=== PATIENT | male | born 1940 | race Two or more races ===

== ENCOUNTER 2024-02-28 11:51 | Inpatient (IN) | payer MEDICARE, MEDICAID, SELFPAY ==
[2024-02-28] VITALS (8 sets, daily range): BP systolic 144–169; BP diastolic 68–99; PULSE 61–84; RESP 15–18; TEMP 36.3–37.2; O2SAT 97–100; BMI 24.8
--- NOTE | 2024-02-28 11:57 | XR_ITS ---
Examination: CT brain head without contrast. 2-D sagittal coronal reconstructions Date and time of exam:February 28, 2024 1158 hrs. Indications: Right-sided facial droop this morning, stroke alert, onset focal neurologic deficit CTDI: vol (mGy):49.3 DLP: (mGycm):948 Technique: Multiple CT axial sections of the brain have been obtained, 5 mm slice thickness. Contrast has not been administered. 2-D sagittal, coronal reconstructions have been obtained Low dose protocols were performed. One or more of the following dose reduction techniques were used; automated exposure control, adjustment of the mA and/or KV according to patient size, use of iterative reconstruction technique. Findings: No significant ventricular enlargement. 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 No mass effect or midline shift Basal cisterns are not remarkable. Fourth ventricle is midline. Cranial vault intact. Impression: Negative for acute hemorrhage, mass effect or midline shift As clinically warranted, consider brain MRI follow-up stroke protocol
--- NOTE | 2024-02-28 11:57 | XR_ITS ---
Examination: CTA carotids with intravenous contrast CTA brain, head with intravenous contrast. 2-D sagittal, coronal reconstructions. 3-D reconstructions. Exam date and time: February 28, 2024 12:15 PM Indications: Stroke alert, onset focal neurologic deficit right-sided facial droop this morning CTDI: vol (mGy) 44.9 DLP: (mGycm) 453 Technique: Multiple CTA axial brain, head carotid images post intravenous contrast injection 70 cc, Isovue-370. 2-D sagittal, coronal reconstructions. 3-D reconstructions, 3-D post processing including vascular maximum intensity projection images. Low dose protocols were performed. One or more of the following dose reduction techniques were used; automated exposure control, adjustment of the mA and/or KV according to patient size, use of iterative reconstruction technique. Findings: No significant common carotid carotid bifurcation or internal carotid artery stenoses Minimally dominant right vertebral artery with no critical stenoses 50% stenosis M1 segment right middle cerebral artery No thrombus or large vessel occlusions Impression: No significant neck arterial stenoses 50% stenosis M1 segment right middle cerebral artery No cerebral large vessel occlusions or thrombus
--- NOTE | 2024-02-28 11:59 | EKG_ITS ---
[facility] Test Date: 2024-02-28 Pat Name: MYNOR SANABRIA Department: Room: - Gender: Male [employer] Secretary: : 1941-01-05 Requested By: Mio Esteban Order Number: [id number] Reading MD: Mio Esteban Measurements Intervals Coy Rate: 79 P: 41 NH: 193 QRS: 37 QRSD: 86 T: -7 QT: 386 QTc: 444 Interpretive Statements SINUS RHYTHM No previous ECG available for comparison /store/S0/[id number]/ecg/[id number].pdf
[2024-02-28 12:17] LABS: Basophils % (Auto) 0 % (0-2.5); Eosinophils % (Auto) 1 % (0-10); Hematocrit 35.1 % (41.0-53.0); Hemoglobin 11.8 g/dL (13.5-16.0); Immature Granulocytes % (Auto) 0 % (0-0); Immature Granulocytes Auto 0.01 Thou/mm3 (0.00-0.00); Lymphocytes % (Auto) 15 % (10-50); Mean Corpuscular HGB Conc 33.6 g/dl (31.0-37.0); Mean Corpuscular Hemoglobin 29.9 pg (25.0-35.0); Mean Corpuscular Volume 89 fL (80-100); Monocytes # (Auto) 0.4 Thou/mm3 (0.0-0.8); Monocytes % (Auto) 6 % (0-12); Neutrophils # (Auto) 5.1 Thou/mm3 (1.8-7.7); Neutrophils % (Auto) 77 % (37-80); Nucleated Red Blood Cell % 0 /100 WBC (0); Platelet Count 198 Thou/mm3 (140-440); RDW Standard Deviation 40.4 fL (35.1-43.9); Red Blood Count 3.95 Miln/mm3 (4.50-5.90); White Blood Count 6.6 Thou/mm3 (3.8-10.6)
--- NOTE | 2024-02-28 12:17 | PRELIM_ITS ---
CT scan of the head without intravenous contrast (axial sections with sagittal and coronal reformats) February 28, 2024 at 1158 hoursClinical history: Right facial droop.Comparison: No prior study is av ailable for comparison at the time of interpretation. Findings:There is no evidence of intracranial h emorrhage, mass effect or midline shift. No definitive wedge-shaped acute infarcts are detected. Ther e are periventricular and deep white matter hypodensities, compatible with chronic small vessel ische yamila. There is moderate volume loss. Chronic infarct is seen in the right high frontal lobe. Multiple chronic lacunar infarcts are seen in the left basal ganglia. There is atheromatous calcification of t he intracranial and vertebral arteries. The calvarium is unremarkable. Mild mucosal thickening in karan ateral ethmoid sinuses. The mastoid air cells are clear. Impression:No evidence of intracranial hemor rhage, mass effect or midline shift. If there are persistent clinical symptoms or additional clinical concerns, consider MRI. Chronic small vessel ischemia, chronic infarcts and volume loss as described . Discussion Details: Results verbally communicated to : Dr. Esteban at 12:08 PM 02/28/2024 Report Elec tronically Signed By: Shahriar Ocampo 02/28/2024 12:16:30 PM [EST]
[2024-02-28 12:27] LABS: INR 1.1 (0.9-1.3); Partial Thromboplastin Time 25.1 Seconds (22.0-36.0); Prothrombin Time 11.5 Seconds (9.0-12.2)
[2024-02-28 12:28] LABS: Alanine Aminotransferase 29 U/L (10-49); Albumin, Serum 4.3 gm/dL (3.4-4.8); Albumin/Globulin Ratio 1.9 (1.2-2.2); Alkaline Phosphatase 82 U/L (46-116); Anion Gap 7 (7-16); Aspartate Amino Transferase 17 U/L (0-34); BUN/Creatinine Ratio 13 Ratio (12-20); Bilirubin,Total 0.7 mg/dL (0.3-1.2); Blood Urea Nitrogen 14 mg/dL (9-23); Calcium 9.4 mg/dL (8.3-10.6); Calcium (Corrected) 9.4 mg/dL (8.5-10.1); Carbon Dioxide 25.7 mMol/L (20.0-31.0); Chloride 104 mMol/L (98-107); Creatinine (Component) 1.1 mg/dL (0.6-1.3); Globulin 2.3 gm/dL (2.3-3.5); Glucose 324 mg/dL (74-106); Magnesium 1.7 mg/dL (1.6-2.6); Osmolality,Calculated 287 (275-295); Sodium 137 mMol/L (136-145); Total Protein 6.6 gm/dL (5.7-8.2); Troponin I < 0.002 ng/mL (0.0-0.045); eGFR > 60 See Note
--- NOTE | 2024-02-28 12:45 | ESCONSULT_ITS ---
Tele Neuro Consultation Consultation Date 02/28/24 Most Recent Vital Signs Last Vital Signs Pulse 84 02/28/24 12:34 Resp 16 02/28/24 12:34 Pulse Ox 100 02/28/24 12:34 Laboratory-Coagulation Panel PT 11.5 Seconds (9.0-12.2) 02/28/24 11:59 INR 1.1 (0.9-1.3) 02/28/24 11:59 APTT 25.1 Seconds (22.0-36.0) 02/28/24 11:59 Consultation Narrative [facility] Tele[facility]urology Consult Services Patient Name:???Artie Roman Date of :???01/05/1941 Identification Number:??? 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 No dysphagia on bedside swallow evaluation. Tpa not offered given low nihss, pt did not find symptoms disabling. Recommend admission for stroke workup. ? ?Recs: ? - cont home asa 81mg, load with plavix 600 mg load now ?- Following day - DAPT for total of 21 days: asa 81 and plavix 75 mg, followed by asa 81 mg monotherapy indefinitely, unless indication for anticoagulation is found ?- MRI brain wo ?- Telemetry ?- Permissive HTN, BP goal <220/110 ?- TTE if embolic appearing stroke ?- monitor worker 14-30 days upon discharge ? Our recommendations are outlined below. Recommendations: ? Stroke/Telemetry Floor ? Neuro Checks ? Bedside Swallow Eval ? DVT Prophylaxis ? IV Fluids, Normal Saline ? Head of Bed 30 Degrees ? Euglycemia and Avoid Hyperthermia (PRN Acetaminophen) Sign Out: ? Discussed with Emergency Department Provider Advanced Imaging:CTA Head and Neck Completed. LVO:No Patient in not a candidate for ADAMA Metrics: Last Known Well: 02/28/2024 11:12:00 Dispatch Time: 02/28/2024 11:55:54 Arrival Time: 02/28/2024 11:51:00 Initial Response Time: 02/28/2024 11:57:32Symptoms: coming from home R facial droop slurred speech. Initial patient interaction: 02/28/2024 12:18:45 NIHSS Assessment Completed: 02/28/2024 12:28:00Patient is not a candidate for Thrombolytic. Thrombolytic Medical Decision: 02/28/2024 12:28:00Patient was not deemed candidate for Thrombolytic because of following reasons: Stroke severity too mild (non-disabling) . I personally Reviewed the CT Head and it Showed no acute changes. 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 Primary Provider Notified of Diagnostic Impression and Management Plan on: 02/28/2024 12:35:52 History of Present Illness:Patient is a 83 year old Male. Patient was brought by EMS for symptoms of coming from home R facial droop slurred speech. 83 year old man presents via ems for R facial droop with slurred speech. Pt was talking with his when his speech changed. Pt had a stroke one year ago without residual deficits. Per who presented later at bedside pt had difficulty speaking and was given tpa for stroke in March. No residual deficits. ? Past Medical History: ?Hypertension ?Diabetes Mellitus ?Stroke Medications: No Anticoagulant use? Antiplatelet use:?Yes?asa 81 mg Reviewed EMR for current medications Allergies:? Reviewed Social History: Alcohol Use: No Family History: There is no family history of premature cerebrovascular disease pertinent to this consultation ROS : 14 Points Review of Systems was performed and was negative except mentioned in HPI. Past Surgical History: There Is No Surgical History Contributory To Today?s Visit ? Examination: BP(197/100),?Pulse(96),?Blood Glucose(282) 1A: Level of Consciousness - Alert; keenly responsive?+ 0 1B: Ask Month and Age - Both Questions Right?+ 0 1C: Blink Eyes & Squeeze Hands - Performs Both Tasks?+ 0 2: Test Horizontal Extraocular Movements - Normal?+ 0 3: Test Visual Neri - No Visual Loss?+ 0 4: Test Facial Palsy (Use Grimace if Obtunded) - Minor paralysis (flat nasolabial fold, smile asymmetry)?+ 1 5A: Test Left Arm Motor Drift - No Drift for 10 Seconds?+ 0 5B: Test Right Arm Motor Drift - No Drift for 10 Seconds?+ 0 6A: Test Left Leg Motor Drift - No Drift for 5 Seconds?+ 0 6B: Test Right Leg Motor Drift - No Drift for 5 Seconds?+ 0 7: Test Limb Ataxia (FNF/Heel-Pierre) - No Ataxia?+ 0 8: Test Sensation - Normal; No sensory loss?+ 0 9: Test Language/Aphasia - Normal; No aphasia?+ 0 10: Test Dysarthria - Mild-Moderate Dysarthria: Slurring but can be understood?+ 1 11: Test Extinction/Inattention - No abnormality?+ 0 NIHSS Score:?2 NIHSS Free Text :?R facial droop, no dysphagia, Pre-Morbid Modified [place] Scale:0 Points = No symptoms at all Spoke with :?Dr. Esteban This consult was conducted in real time using interactive audio and video technology. Patient was informed of the technology being used for this visit and agreed to proceed. Patient located in hospital and provider located at home/office setting. Patient is being evaluated for possible acute neurologic impairment and high probability of imminent or life-threatening deterioration. I spent total of 48 minutes providing care to this patient, including time for face to face visit via telemedicine, review of medical records, imaging studies and discussion of findings with providers, the patient and/or family. Dr Shay Wharton [facility] For Inpatient follow-up with [facility] physician please call [facility] at . As we are not an outpatient service for any post hospital discharge needs please contact the hospital for assistance. If you have any questions for the [facility] physicians or need to reconsult for clinical or diagnostic changes please contact us via [facility] at .
--- NOTE | 2024-02-28 13:50 | PC.NURSE ---
Patient biba from home for right facial droop and slurred speech. He was home with his having breakfast at 1120 she noticed he began to slur and had a droop. Patient arrived at 1145, Code stroke called at 1145 CT at 1150, tele neuro present at [address] Shay Wharton no TNK to be given. and patient state he had no deficits from stroke in 2022 however other family member bedside states that he has had a right facial droop from that prior stroke.
--- NOTE | 2024-02-28 14:00 | PD.EDNEURO ---
Neuro Symptoms Deficit-RME/HPI General Chief Complaint: Neuro Symptoms/Deficit Stated Complaint: STROKE Time Seen by Provider: 02/28/24 11:57 Arrival date/time: 02/28/24 11:51 RME / HPI RME / HPI Narrative: 83-year-old male with a history of CVA (no residual deficits per ) who is brought in by EMS after in the middle of a conversation at 11:20 AM noted increasing slurred speech and difficulty making words. He has a right facial droop as well. No extremity weakness. Patient denies headache or seizure-like activity Related Data Home Medications ?Medication ?Instructions ?Recorded ?Confirmed metformin 1,000 mg tablet 1,000 mg PO BID 03/18/19 03/19/23 insulin glargine 100 unit/mL (3 12 unit subcut HS 03/19/23 03/19/23 mL) subcutaneous pen (Lantus Solostar U-100 Insulin) semaglutide 0.25 mg or 0.5 mg (2 0.25 mg subcut QWEEK 03/19/23 03/19/23 mg/3 mL) subcutaneous pen injector (Ozempic) Previous Rx's ?Medication ?Instructions ?Recorded aspirin 81 mg tablet,delayed 81 mg PO QDAY #30 tabs 03/23/23 release atorvastatin 40 mg tablet 40 mg PO QPM #30 tabs 03/23/23 clopidogrel 75 mg tablet (Plavix) 75 mg PO QDAY #30 tabs 03/23/23 insulin lispro 100 unit/mL 1 sliding scale dose subcut 03/23/23 subcutaneous pen (Admelog SoloStar USEASDIRECTD #15 mL U-100 Insulin lispro) lisinopril 10 mg tablet 10 mg PO QDAY #30 tabs 03/23/23 Allergies Allergy/AdvReac Type Severity Reaction Status Date / Time No Known Allergies Allergy Verified 03/19/23 02:53 Review of Systems Review of Systems Systems Reviewed: All systems reviewed, normal except as documented ED Exam Narrative Physical exam: GENERAL APPEARANCE: AxOx4, generally well-appearing, no acute distress, mild to moderate dysarthria HEENT: NC, AT. MMM. EOMI, clear conjunctiva, oropharynx clear. NECK: Supple without lymphadenopathy. No stiffness or restricted ROM. HEART: Normal rate and regular rhythm, normal S1/S1, no m/r/g LUNGS: CTAB, moving air well. No crackles or wheezes are heard. ABDOMEN: Soft, nontender, nondistended with good bowel sounds heard. BACK: No midline C/T/L spine pain or deformity, No CVAT, no obvious deformity. EXTREMITIES: Without cyanosis, clubbing or edema. MUSCULOSKELETAL: FROM of all major joints, no chest tenderness NEUROLOGICAL: Grossly nonfocal. Alert and oriented, moving all 4 extremities. CN-7 on right deficit not formally tested but appear grossly intact. Observed to ambulate with normal gait. Skin: Warm and dry without any rash. Course Quality Measures Suspected type of Stroke: Acute Ischemic Last known well (date): 02/28/24 Last known well (time): 11:20 Tenecteplase given: Reason(s) TPA not given: Stroke severity too mild (non-disabling) not given stroke Orders Category Date Time Status Bedside Blood Glucose NOW Care 02/28/24 11:59 Active Ends Down Checker NOW Care 02/28/24 11:59 Active Continuous Pulse Oximetry NOW Care 02/28/24 11:59 Active EKG (ED ONLY) *Do not use* NOW Care 02/28/24 11:59 Completed In and Out Catheter NEEDED Care 02/28/24 11:59 Active Insert IV NOW Care 02/28/24 11:59 Active NIH Stroke Scale now Care 02/28/24 11:59 Active NPO NOW Care 02/28/24 11:59 Active Neuro Check Q30MIN Care 02/28/24 11:59 Active Nurse Swallow Screen x1 Care 02/28/24 11:59 Active Consult to Neurology / Tele-Neurology Routine Cons 02/28/24 11:[address] angio stroke protocol Stat Exams 02/28/24 11:[address] stroke protocol Stat Exams 02/28/24 11:57 Taken EKG (ED Only) Stat Exams 02/28/24 11:59 Draft CBC Stat Lab 02/28/24 11:59 Completed Comprehensive Metabolic Panel Stat Lab 02/28/24 11:59 Completed Drug Screen,Urine Stat Lab 02/28/24 11:59 Ordered Magnesium Stat Lab 02/28/24 11:59 Completed Partial Thromboplastin Time Stat Lab 02/28/24 11:59 Completed Prothrombin Time with INR Stat Lab 02/28/24 11:59 Completed Troponin I Stat Lab 02/28/24 11:59 Completed Urinalysis Stat Lab 02/28/24 12:40 Ordered Urine Culture Stat Lab 02/28/24 11:59 Ordered Clopidogrel [Plavix] Med 02/28/24 13:52 Discontinued 600 mg PO X1 ONE Ondansetron Inj [Zofran Inj] Med 02/28/24 11:59 Active 4 mg IV Q4HR PRN Oxygen Delivery NOW RT 02/28/24 11:59 Active Reevaluation(s) Reevaluation #1: On re-evaluation, patient continues to the right facial droop and mild slurred speech, at this point his grandson is bedside with him who is visiting from [place] lasting him 3 months ago. He ensures that the right facial droop and a mild slurred speech has been residual since his previous stroke but he feels that he has more difficulty producing words and more dysarthria than normal. Time: 13:30 Vital Signs Vital signs: Vital Signs Pulse Rate 84 02/28/24 12:34 Respiratory Rate 16 02/28/24 12:34 Pulse Oximetry (%) 100 02/28/24 12:34 SpO2 100%, on RA, not hypoxic Neuro Symptoms / Deficit MDM Narrative MDM Narrative:: 83-year-old male with a history of CVA who presents with worsening dysarthria. Initially there was concern for right facial droop by his , however on reevaluation with his grandson, he states that his facial asymmetry looks unchanged from the last time he saw him 3 months ago. Given the mild dysarthria this equates to a low NIH disability where although he presented within the window of for thrombolytics, TNKase was not given after close discussion with teleneurology. As he has chronic risk factors and progression of symptoms, he will be admitted for further acute stroke workup. Patient data External records reviewed:: [facility] previous records Clinical information provided by:: patient, EMS, family and spouse Social determinants that could affect healthcare access:: none Patient has the following chronic illnesses:: CVA, dyslipidemia, hypertension, insulin-dependent diabetes. How is presenting disease/condition affected by chronic disease/condition?: caused by Evaluation data The following diagnostics were reviewed and interpreted by me:: lab results Lab and/or radiology exams considered but not ordered:: None Interpretation Summary: As per narrative Medications / Prescriptions Medications or Prescriptions considered but not ordered:: As per narrative Medication administrations:: Medication Administration History Ondansetron HCl (Ondansetron Inj 2 Mg/Ml Inj 2 Ml) 4 mg IV Q4HR PRN PRN Reason: NAUSEA OR VOMITING Stop: 03/29/24 11:58 Discontinued Medications Clopidogrel Bisulfate (Clopidogrel Bisulfate 75 Mg Tablet) 600 mg PO X1 ONE Stop: 02/28/24 13:53 Above Consultations Consultation(s) initiated? (list below): Yes Consultation #1 (Physician, Specialty, Details): Case discussed with teleneurology, due to low NIH score, does not recommend TNKase, recommends loading Plavix to 600 mg and admit to telemetry for further Diagnosis Neuro Differential Diagnosis: subarachnoid hemorrhage, cerebrovascular accident and transient cerebral ischemia Most likely diagnosis given after review of the tests above:: See below Admission Indicated Admission indicated?: indicated Admission Request Was there a request for admission?: Yes Admission Attestation Admission request attestation: Discussed case with [Dr. Ramesh Zarate] from Hospitalist service regarding admission. Discussed patients ED course, exam findings, labs, and radiology results. The Hospitalist [agrees] to accept the patient for admission. Disposition Plan Disposition Plan: Admit Critical Care Time Critical Care Time Critical Care Time: Yes Total Critical Care Time (min.): 45 Attestation: Excluding billable procedures for the rapid response, analysis, management, deliberation with specialist, treatment, and documentation to vent the very possible risk of neurologic deterioration and or . Discharge Plan Plan Patient Disposition: Admit Acute Care w/in Hospital Prescriptions/Referrals Prescriptions/Med Rec: No Action metformin 1,000 mg Tablet 1,000 mg PO BID insulin glargine [Lantus Solostar U-100 Insulin] 100 unit/mL (3 mL) insulin pen 12 unit SUBCUT HS Ozempic 0.25 mg or 0.5 mg (2 mg/3 mL) Pen Injector 0.25 mg SUBCUT QWEEK Hold Instructions: Hold until follow up with PCP Rx Instructions: for 4 weeks on fridays aspirin 81 mg tablet,delayed release (DR/EC) 81 mg PO QDAY Qty: 30 0RF clopidogrel [Plavix] 75 mg tablet 75 mg PO QDAY Qty: 30 0RF atorvastatin 40 mg tablet 40 mg PO QPM Qty: 30 0RF lisinopril 10 mg tablet 10 mg PO QDAY Qty: 30 0RF insulin lispro [Admelog SoloStar U-100 Insulin] 100 unit/mL insulin pen 1 sliding scale dose subcut USEASDIRECTD Qty: 15 2RF Referrals: No Primary/Family,Physician [Primary Care Provider] - In 1 week Problem List Clinical Impression: Acute cerebrovascular accident (CVA), Dysarthria Patient/Caregiver Discharge Instructions Print Language: Armenian Stand Alone Forms: Sarahi Award Info., Patient Portal Info Letter
[2024-02-28] MEDS: CLOPIDOGREL BISULFATE 75 MG TABLET 600 MG PO (14:20)
--- NOTE | 2024-02-28 15:37 | ECHO_ITS ---
Transthoracic Echo Report Ht (in): 65 Wt (lb): 149 Exam Location: Portable Status: Inpatient Pipe Insulator: Gwendolyn Peters Indications: Procedure Performed: BP: 164 / 74 HR: 64 Rhythm: Sinus Technical Quality: Fair Contrast: Agitated Saline Total Dose (mL): MEASUREMENTS (Male / Female) Normal Values 2D ECHO LV Diastolic Diameter PLAX 4.2 cm 4.2 - 5.9 / 3.9 - 5.3 cm LV Systolic Diameter PLAX 2.6 cm IVS Diastolic Thickness 0.9 cm 0.6 - 1.0 / 0.6 - 0.9 cm LVPW Diastolic Thickness 1.0 cm 0.6 - 1.0 / 0.6 - 0.9 cm LV Relative Wall Thickness 0.5 LVOT Diameter 1.6 cm LA Volume Index 30.1 cm?/m? 16 - 28 cm?/m? Ascending Aorta Diameter 3.2 cm M-MODE Aortic Root Diameter MM 3.2 cm LA Systolic Diameter MM 3.6 cm LA Ao Ratio MM 1.1 AV Cusp Separation MM 2.0 cm DOPPLER AV Peak Velocity 115.0 cm/s AV Peak Gradient 5.3 mmHg AV Mean Gradient 3.0 mmHg AV Velocity Time Integral 27.2 cm LVOT Peak Velocity 110.0 cm/s LVOT Peak Gradient 4.8 mmHg LVOT Velocity Time Integral 25.0 cm LVOT Cardiac Index 1816.6 cm?/min?m? AV Area Cont Eq vti 1.8 cm? AV Area Cont Eq pk 1.9 cm? MV Peak Velocity 91.8 cm/s MV Peak Gradient 3.4 mmHg MV Mean Velocity 58.4 cm/s MV Mean Gradient 2.0 mmHg MV Area PHT 3.2 cm? Mitral E Point Velocity 78.6 cm/s Mitral A Point Velocity 92.6 cm/s Mitral E to A Ratio 0.8 LV E' Lateral Velocity 7.3 cm/s Mitral E to LV E' Lateral Ratio 10.8 LV E' Septal Velocity 6.0 cm/s Mitral E to LV E' Septal Ratio 13.1 TR Peak Velocity 167.0 cm/s TR Peak Gradient 11.2 mmHg FINDINGS Left Ventricle Normal left ventricular size, wall thickness, systolic function with no obvious regional wall motion abnormalities. The ejection fraction is visually estimated at 60-65%. Right Ventricle The right ventricle is normal in size and systolic function. The estimated right ventricular systoli c pressure, 16mmHg. RAP 5. Left Atrium The left atrium is normal by two-dimensional, color flow and Doppler imaging with no structural abnormalities, no thrombus formation present. Right Atrium The right atrium is normal by two-dimensional imaging, color flow and Doppler imaging with no struct ural abnormalities, no thrombus formation present. Atrial Septum The interatrial septum appears normal with no evidence of a shunt. Aorta The aorta is normal by two-dimensional, color flow and Doppler interrogation. Mitral Valve The mitral valve is normal by two-dimensional, color flow and Doppler interrogation. There is trace mitral valve regurgitation. Aortic Valve The aortic valve is trileaflet and normal by two-dimensional, color flow and Doppler interrogation. There is trace aortic valve regurgitation. Tricuspid Valve The tricuspid valve is normal by two-dimensional, color flow and Doppler interrogation. There is tra ce tricuspid valve regurgitation. Pulmonic Valve There is no significant pulmonic valve regurgitation. Vessels The pulmonary artery appears normal. The inferior vena cava pulmonary and hepatic veins appear jerrica l. Pericardium The pericardium is normal by two-dimensional imaging. There is no significant pericardial effusion. CONCLUSIONS Negative bubble study. No evidence of PFO or ASD. Normal LV size and function. Estimated EF 60-65% Normal RV size and function Trace MR, AI, TR. Elvia Strickland (Electronically Signed) Final Date: 29 February 2024 17:15
--- NOTE | 2024-02-28 15:45 | ESHP_ITS ---
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 Patient stated he began feeling dizzy at approximately 11 AM on 02/28/2024. Patient stated he was in the kitchen making breakfast when his vision became blurry and he felt dizzy.. Patient denied loss of consciousness. Patient denied head trauma. Patient denied seizure-like activity or urinary incontinence. Patient's noted increased dysarthric speech. Patient has a history of 2 TIAs in 2021 and March 2023 history of CVA ischemic stroke with multiple infarcts on the left basal ganglia/caudate nucleus and left parietal matter which left him with increased right-sided weakness and right facial droop noticeable at the nasal folds. Patient continues to attend OT at [facility]. Patient continues to take his medication for his insulin Glargine 16 and Jardiance 10 daily. Admitted on 02/28/2024 for CVA work up. ER Course: ER course BPH 169/79, HR 84, RR 16 saturating well on room air NIHSS score 2 WBC 6.6 CMP (02/28/2024): Na 137, K 4.0, BUN 14, Cr 1.1, glucose 324, Magnesium 1.7 Troponins <0.[address] (02/28/2024): Pending Tele Neuro consulted: Plavix loading dose 600 mg PMH: -HTN -HLD -TIA -Stroke (2023) decreased motor function on right side and right sided facial drop w/dysarthria speech Past Surgical History: -Perianal abscess i&D (remote history)-->antibiotics-->C.diffe Home Medication: Jardiance 10 daily Insulin glargine 16 HS Lisinopril 20 mg Aspirin 81 mg Daily Plavix 75 mg daily Atorvastatin 40 HS Social History: Never smoked denied illicit drug use denied alcohol use Allergies: None Code Status: Full Code Review of Systems Review of Systems Narrative Review of Systems: General appearance: NO weight change, NO fatigue, NO weakness, NO fever, NO chills, NO night sweats, No cough Skin: NO rash, NO itching, NO sores, NO moles HEENT: NO Trauma, NO nausea, NO vomiting, NO visual changes, NO blurry vision, NO double vision, NO tinnitus, NO vertigo, NO ear discharge, NO rhinorrhea, NO stuffiness, NO sneezing, NO allergy, NO epistaxis. NO Hoarseness, NO sore throat, NO swollen neck. Cardiac: NO Palpitations, NO dyspnea on exertion, NO orthopnea, NO paroxysmal nocturnal dyspnea, NO edema Respiratory: NO Shortness of Breath, NO Wheezing, NO Cough, NO Sputum, NO hemoptysis GI:NO appetite, NO nausea, NO vomiting, NO dysphagia, NO changes in bowel frequency, NO stool color, NO diarrhea, NO constipation, NO hemetemesis, NO hemorrhoids, NO melena, NO hematechezia, NO abdominal pain, NO jaundice Renal: NO frequency, NO hesitancy, NO urgency, NO hematuria, NO nocturia, NO incontinence MSK: NO muscle weakness, NO gout, NO arthritis, NO muscle stiffness Neuro: NO headaches, NO tremors, NO weakness, NO paralysis, NO seizures, NO loss of consciousness, NO numbness. Hem: NO anemia, NO easy bruising/bleeding, NO petechiae, NO purpura Endo: NO heat/cold intolerance, NO excessive sweating, NO polyuria, NO polydipsia, NO polyphagia, NO thyroid problems, NO diabetes Pysch: NO mood, NO anxiety, NO depression Exam Vital Signs Temp Pulse Resp BP Pulse Ox O2 Del Method 97.9 F 65 16 158/75 H 98 Room Air 02/28/24 15:00 02/28/24 15:00 02/28/24 15:00 02/28/24 15:00 02/28/24 15:00 02/28/24 15:00 Narrative Exam General Appearance: Alert & Oriented X3, well-nourished male who is lying in bed in no acute distress HEENT: Skull symmetrical and atraumatic. Conjunctivae pink and moist. Pupils equal, round, reactive to light and accommodation (PERRL). External ear without lesion or discharge. Straight, nares patient, mucosa pink, no discharge. No thyroid nodule appreciated. No cervical lymphadenopathy. Cardio: Normal Rate and Rhythm with S1 and S2 heart sounds. No murmurs or extra heart sounds auscultated. No bruits on carotid auscultation. No peripheral edema or cyanosis. Lungs: Symmetric with good expansion. Chest and back non-tender. Breath sounds vesicular without crackles, wheezing or rhonchi Abdomen: Non-tender, Non-distended, Normal Reactive Bowel Sounds Neuro: Alert, cooperative, oriented to person, place, and time. Dysarthria at baseline. CN grossly intact. Upper motor strength 5/5 and Lower motor strength 5/5. Sensation intact. Nasolabial fold depressed (baseline from previous stroke) Results: Labs 02/29/24 05:26 02/29/24 05:26 Labs: Short CBC 02/28/24 Range/Units 11:59 WBC 6.6 (3.8-10.6) Thou/mm3 Hgb 11.8 L (13.5-16.0) g/dL Hct 35.1 L (41.0-53.0) % Plt Count 198 (140-440) Thou/mm3 BMP 02/28/24 11:59 Sodium 137 Potassium 4.0 Chloride 104 Carbon Dioxide 25.7 BUN 14 Creatinine 1.1 Glucose 324 H Calcium 9.4 Cardiac Enzymes 02/28/24 Range/Units 11:59 Troponin I < 0.002 (0.0-0.045) ng/mL Liver Function 02/28/24 Range/Units 11:59 Total Bilirubin 0.7 (0.3-1.2) mg/dL AST 17 (0-34) U/L ALT 29 (10-49) U/L Alkaline Phosphatase 82 (46-116) U/L Albumin 4.3 (3.4-4.8) gm/dL Quality Measures Quality Measures stroke Suspected type of Stroke: Acute Ischemic Last known well (date): 02/28/24 Last known well (time): 11:20 Tenecteplase given: Reason(s) Tenecteplase not given: Stroke severity too mild (non-disabling) not given Rehab services: PT evaluation ordered VTE Prophylaxis: mechanical Antithrombotic by day 2:: ordered Statin ordered: >75 y/o moderate or high intensity dose Anticoagulation ordered for A-fib or flutter (current or hx): ordered (Plavix and Aspirin ) Advance care planning discussed with:: patient Medications Home Medications and Allergies Home Medications ?Medication ?Instructions ?Recorded ?Confirmed ?Type insulin glargine 100 unit/mL (3 16 unit subcut 03/19/23 02/28/24 History mL) subcutaneous pen (Lantus Solostar U-100 Insulin) empagliflozin 10 mg tablet 10 mg PO DAILY 02/28/24 02/28/24 History (Jardiance) lisinopril 20 mg tablet 20 mg PO HS 02/28/24 02/28/24 History Allergies Allergy/AdvReac Type Severity Reaction Status Date / Time No Known Allergies Allergy Verified 02/28/24 20:31 Visit Medications Acetaminophen (Acetaminophen 325 Mg Tablet) 650 mg PO Q6H PRN PRN Reason: Mild Pain 1-3 or fever >100.4 Stop: 03/29/24 15:19 Acetaminophen (Acetaminophen 325 Mg Tablet) 650 mg PO Q6H PRN PRN Reason: Pain Scale 1-3 or Fever >100.3 Stop: 03/29/24 15:19 Aspirin (Aspirin Ec 81 Mg Tabec) 81 mg PO QDAY [facility] Stop: 03/30/24 08:59 Atorvastatin Calcium (Atorvastatin Calcium 20 Mg Tablet) 40 mg PO [facility] Stop: 03/29/24 20:59 Clopidogrel Bisulfate (Clopidogrel Bisulfate 75 Mg Tablet) 75 mg PO QDAY [facility] Stop: 03/30/24 08:59 Dextrose (Dextrose 50%-Water Inj 50 Ml Syringe) 25 ml IV Q15MIN PRN PRN Reason: BG 50-70 responsive npo pt Stop: 03/29/24 15:23 Dextrose (Dextrose 50%-Water Inj 50 Ml Syringe) 50 ml IV Q15MIN PRN PRN Reason: BG <50 OR BG <70 & pt unresponsive Stop: 03/29/24 15:23 Glucagon (Glucagon Inj 1 Mg Vial) 1 mg IM Q15MIN PRN PRN Reason: BG <70, and no IV access Hydralazine HCl (Hydralazine Inj 20 Mg/Ml Vial) 10 mg IV Q4HR PRN PRN Reason: Hyptertension Stop: 03/29/24 15:30 Sodium Chloride (Ns) 1,000 mls @ 70 mls/hr IV .[id number] ONE Stop: 02/29/24 05:45 Insulin Glargine (Insulin Glargine (Lantus) 5 Unit/0.05 Ml (Per 5 Units)) 16 unit SC [facility] Stop: 03/29/24 20:59 Insulin Human Lispro (Insulin Lispro (Admelog) 1 Unit/0.01 Ml Unit) 0 unit SC [facility]; Protocol Stop: 03/29/24 16:59 Lisinopril (Lisinopril 20 Mg Tablet) 20 mg PO QDAY [facility] Stop: 03/30/24 11:59 Ondansetron HCl (Ondansetron Inj 2 Mg/Ml Inj 2 Ml) 4 mg IV Q4HR PRN PRN Reason: NAUSEA OR VOMITING Stop: 03/29/24 11:58 Pantoprazole Sodium (Pantoprazole 40 Mg Tablet) 40 mg PO QDAY [facility] Stop: 03/29/24 15:29 Discontinued Medications Clopidogrel Bisulfate (Clopidogrel Bisulfate 75 Mg Tablet) 600 mg PO X1 ONE Stop: 02/28/24 13:53 Last Admin: 02/28/24 14:20 Dose: 600 mg Assessment & Plan Plan Patient is a 83-year-old male with a past medical history of hypertension, hyperlipidemia, diabetes mellitus type 2 insulin-dependent, history of TIA x 2, and history of CVA multiple infarcts at left basal ganglia/caudate nucleus, left parietal who was admitted on 02/28/2024 for CVA work up. #CVA #Pre-syncope #HLD Etiology: Patient likely experienced a TIA given return to patinet's baseline per son at bedside. Right sided facial drop is patient's baseline from previous stroke of March 2023. Motor deficits with previous stroke but patient was able to follow commands and minimal motor weakness noted on upper and lower extremity. CT negative for hemorrhage. NIHSS 2. Pending lipid panel for [place] risk stratification. DDx: Dizziness less likely secondary to polypharmacy as patient only takes Lisinopril 20 mg vs history of vertigo vs less likely secondary to seizure as no seizure like activity and urinary incontinence vs vasovagal vs cardio arrhythmias less likely given normal EKG. Diagnostics: - EKG Sinus Rhythm, troponin <0.002 -Head CT Prelim: No evidence of intracranial hemorrhage, mass effect, or midline shift & Periventricular chronic vessel ischemia and volume loss Plan: -Plavix 75 mg & Aspirin 81 mg start 02/29/2024 at 9:00 AM -Atorvastatin 40 mg HS -Head/Neck CTA pending -MRI Stroke Protocal: ordered -Echo pending -Orthostatic Vitals -Neuro Checks -Aspiration Precautions, Head of bed 30 degrees -Euglycemia and avoid Hyperthermia -Acetaminophen PRN -NS 1 L @ 70 cc -BNP and CBC -A1c -Lipid Panel -TSH -Allow for permissive HTN, NO TPA given, Systolic >220 or Diastolic >110 or suspected end organ failure, consider Labetolol or Hydralazine -Sliding Scale Lispro (elder) -PT and speech referral #Hypertension: Past medical history of hypertension on Lisinopril 20 mg HS. Given CVA work up, allow for permissive hypertension and NO TPA given. Plan -Restart Lisnopril 20 mg Qday at 12 PM on 02/29/2024 -Allow for permissive hypertension, keep systolic BP <220 or diastolic BP <110 or suspected end organ damage. -consider Hydralzine or Labetolol #Diabetes Mellitus Type 2-insulin Dependent Patient has a past medical history of diabetes mellitus type 2 insulin dependent with home insulin Glargine 14 units HS and Jardiance. Diagnostic: 03/2023: 10.2% Glucose on admission 324 Plan: -Glargine 14 HS -Sliding Scale -Holding Jardiance -A1c AM draw Health Maintenance: Disp: Pt is currently admitted to floors for further management of CVA work up, awaiting CT head and MRI brain FEN: Passed Swallow Screen--->Cardiac/Low carb consistent DVT: compression device Code: Full Code - The patient's plan was discussed with attending Dr. Falcon and senior residents Sudha Lara MD PGY1 Internal Medicine Attending Provider Attestation/Addendum Renata, Corinna Falcon DO, attest that I was physically present for the boo portions of the service and evaluated the patient with the resident and I reviewed and discussed the case with the resident and agree with the resident's findings and plans of care as documented above Patient is an 83-year-old male with past medical history of hypertension, hyperlipidemia, type 2 diabetes mellitus, CVA who presents to ED with complaints of dizziness and dysarthria. Patient states that the symptoms began about 11 AM. He also complains that his vision was blurry. Patient has slurred speech and a right facial droop, but unclear if this is his baseline given his previous strokes. No family at bedside. However, patient states that he has some trouble getting his words out. Patient was seen by telemetry neuro in the ED, recommends to continue with aspirin, Plavix and statin. Will order MRI to rule out any new CVA as a cause of his symptoms. Will admit to telemetry for further workup and medical management of possible CVA
--- NOTE | 2024-02-28 16:21 | PC.CC ---
Pt Artie Godfrey is an 83 yr old male admitted to hospitalist services for stroke work up. ASW met with pt at bedside to complete initial assessment. At time of encounter pt is noted to be alert and oriented to person, place and situation. Pt expressed understanding admission orders at this time. Pt able to confirm all demographic information. Pt from home [address], where he lives with his spouse Dunia Godfrey [phone]. Pt identifies his as surrogate DM. Pt is retired. At baseline pt reports using a cane and sometimes a wheelchair in the home to support ambulation. Pt reports being independent with his ADLs. Pt reports he is diabetic on insulin for management. Pt is not on dialysis. Pt states he does not require supplemental O2 at home. Pt is unclear on who his primary provider is at this time. Per pt he sees several providers but states he does not know who provides primary care. At time of D/c pt wants to return home. ASW provided further information to pt that admitting team may request PT evaluation for ability to safetly D/c home. ASW informed pt that SNF could be a possible recommendation, pt expressed understanding and is agreeable, but will speak with his family. If pt returns home, possible HH order and DME evaluation for home needs.
[2024-02-28] MEDS: SODIUM CHLORIDE 0.9% 1000 ML 1,000 ML 70 ML IV (17:23)
[2024-02-28] MEDS: PANTOPRAZOLE 40 MG TABLET PO (17:23)
--- NOTE | 2024-02-28 17:41 | PC.NURSE ---
Held 1700 dose of insulin. at 1257 pt bg was 330. at 1644 bg was 179. Patient has not eaten yet. Consulted , orders to hold 1700 dose.
[2024-02-28 18:10] LABS: Collection Type, Urine Clean Catch; Squamous Epithelial Cell,Urine 0 /hpf (0-5)
[2024-02-28 18:21] LABS: Amphetamine/Methamp Scrn,U Negative (Negative); Barbiturate Screen,Urine Negative (Negative); Benzodiazepines Screen,Urine Negative (Negative); Benzoylecgonine Screen, Ur Negative (Negative); Fentanyl Screen,Urine Negative (Negative); Opiate Screen,Urine Negative (Negative); THC Screen,Urine Negative (Negative)
[2024-02-28 18:38] LABS: Bilirubin,Urine Negative (Negative); Blood,Urine Negative (Negative); Clarity,Urine Clear (Clear/Hazy); Color,Urine Lt-Yellow (Lt Yel-Yel); Glucose, Urine 3+ (Negative); Ketones,Urine Negative (Negative); Leukocyte Esterase,Urine Negative (Negative); Nitrite,Urine Negative (Negative); PH,Urine 7.5 (5.0-7.0); Protein,Urine Trace (Neg - Trace); RBC,Urine 3 /hpf (0-3); Urobilinogen,Urine Negative mg/dL (0.0-1.0); WBC,Urine 1 /hpf (0-5)
--- NOTE | 2024-02-28 20:40 | PC.NURSE ---
re med rec- Advised family to bring home med bottles in a.m. for verification.
[2024-02-28] MEDS: ATORVASTATIN CALCIUM 20 MG TABLET 40 MG PO (21:48)
[2024-02-29] VITALS (8 sets, daily range): BP systolic 127–164; BP diastolic 63–75; PULSE 51–71; RESP 14–17; TEMP 35.8–36.4; O2SAT 94–100
--- NOTE | 2024-02-29 | XR_ITS ---
Examinations: MRI Brain without intravenous contrast. MRA brain without intravenous contrast. MRA carotids without intravenous contrast 3-D vascular reconstructions Date and time of exam: February 29, 2024 1421 hours Comparison March 19, 2023 INDICATIONS: Stroke alert February 28, 2024, onset focal neurologic deficit, slurred speech right-sided facial droop Technique: Multiple axial and sagittal images of the brain have been obtained MRA brain carotid images without contrast obtained, including 3-D postprocessing, vascular maximum intensity projection images Findings: Sellaturcica is not enlarged. The optic chiasm and infundibular stalk are not remarkable. Prepontine and interpeduncular cisterns are not enlarged. No localized enlargement of the medulla or carmine. Fourth ventricle and cerebellar tonsils normal in position. Subacute hemorrhage is not seen. Fourth ventricle is midline. Mass in the cerebellopontine angle region is not evident. 7th and 8th nerve complexes exhibits symmetry. Globes are symmetrical with no retro-orbital mass. Increased white matter signal prominent Diffusion-weighted images demonstrate 2 mm focus restricted diffusion diffusion axial image 14 Mass-effect upon the ventricular system is not identified. MRA carotid images no significant carotid stenoses. MRA brain images significant irregularity right posterior cerebral artery branches Impression: 2 mm acute infarct left temporal lobe
[2024-02-29 06:09] LABS: Basophils % (Auto) 0 % (0-2.5); Eosinophils # (Auto) 0.2 Thou/mm3 (0.0-0.5); Eosinophils % (Auto) 3 % (0-10); Hematocrit 32.5 % (41.0-53.0); Hemoglobin 10.9 g/dL (13.5-16.0); Immature Granulocytes % (Auto) 0 % (0-0); Immature Granulocytes Auto 0.01 Thou/mm3 (0.00-0.00); Lymphocytes # (Auto) 1.6 Thou/mm3 (1.0-4.8); Lymphocytes % (Auto) 30 % (10-50); Mean Corpuscular HGB Conc 33.5 g/dl (31.0-37.0); Mean Corpuscular Volume 90 fL (80-100); Monocytes # (Auto) 0.6 Thou/mm3 (0.0-0.8); Monocytes % (Auto) 12 % (0-12); Neutrophils # (Auto) 2.9 Thou/mm3 (1.8-7.7); Neutrophils % (Auto) 54 % (37-80); Nucleated Red Blood Cell % 0 /100 WBC (0); Platelet Count 240 Thou/mm3 (140-440); RDW Standard Deviation 39.8 fL (35.1-43.9); Red Blood Count 3.63 Miln/mm3 (4.50-5.90); White Blood Count 5.4 Thou/mm3 (3.8-10.6)
[2024-02-29 06:27] LABS: Alanine Aminotransferase 26 U/L (10-49); Albumin, Serum 3.8 gm/dL (3.4-4.8); Albumin/Globulin Ratio 1.8 (1.2-2.2); Alkaline Phosphatase 69 U/L (46-116); Anion Gap 7 (7-16); Aspartate Amino Transferase 12 U/L (0-34); BUN/Creatinine Ratio 12 Ratio (12-20); Bilirubin,Total 0.8 mg/dL (0.3-1.2); Blood Urea Nitrogen 12 mg/dL (9-23); Calcium 9.3 mg/dL (8.3-10.6); Calcium (Corrected) 9.5 mg/dL (8.5-10.1); Carbon Dioxide 28.5 mMol/L (20.0-31.0); Cardiac Risk Estimate 2.4 RATIO (4.0-6.7); Chloride 108 mMol/L (98-107); Cholesterol 90 mg/dL (132-200); Estimated Creatinine Clearance 46.9 mL/min (>60); Globulin 2.1 gm/dL (2.3-3.5); Glucose 153 mg/dL (74-106); HDL Cholesterol 37 mg/dL (40-60); LDL Cholesterol,Calculated 43 mg/dL (0-130); Magnesium 1.8 mg/dL (1.6-2.6); Osmolality,Calculated 287 (275-295); Potassium 4.2 mMol/L (3.4-5.1); Sodium 143 mMol/L (136-145); Thyroid Stimulating Hormone 1.33 uIU/mL (0.55-4.78); Total Protein 5.9 gm/dL (5.7-8.2); Triglycerides 49 mg/dL (30-150); eGFR > 60 See Note
[2024-02-29 06:47] LABS: Glucose Estimated Average 295 mg/dL (80-131); Hemoglobin A1C 11.9 % Hgb (4.8-6.0)
[2024-02-29] MEDS: PANTOPRAZOLE 40 MG TABLET PO (08:11)
[2024-02-29] MEDS: INSULIN LISPRO (AdmeLOG) 1 UNIT/0.01 ML UNIT SC ×4 (08:11→20:47)
[2024-02-29] MEDS: ASPIRIN EC 81 MG TABEC PO (08:11)
[2024-02-29] MEDS: CLOPIDOGREL BISULFATE 75 MG TABLET PO (08:11)
--- NOTE | 2024-02-29 08:51 | PC.SS ---
Update: Patient is pending PT eval, MRI and Echo.
--- NOTE | 2024-02-29 09:43 | PCS.ST ---
Swallow Eval completed. Continue current diet. ST follow up for Speech Eval if needed.
--- NOTE | 2024-02-29 11:15 | ESPR_ITS ---
<Statement entered by Shannon Kumari MD - 02/29/24 13:27> I discussed with and supervised my co-resident involved in the care of this patient. I agree with the assessment and plan as documented above. Patient seen and examined at bedside. Per son at bedside, patient is back to his baseline speech and strength. He is moving all 4 extremities without any new residual focal deficit. He has no acute complaints. Will follow up MRI, echo, and physical therapy. Shannon Kumari MD PGY-3 Documentation for date of: 02/29/24 Subjective Subjective Interval history: No acute overnight events, seen and examined at bedside with and son present. Patient denies numbness, tingling, dizziness, or slurred speech. Son states that patient's strength and dysarthria have returned close to baseline, if not at baseline. MRI and echo still pending, anticipate discharge to be tomorrow. Exam Vital Signs Temp Pulse Resp BP Pulse Ox O2 Del Method 97.6 F 62 15 147/74 H 98 Room Air 02/29/24 08:00 02/29/24 08:00 02/29/24 08:00 02/29/24 08:00 02/29/24 08:00 02/29/24 08:00 Narrative Exam General: AOx3, no acute distress, able to speak full sentences HEENT: NC/AT, mucous membranes moist, bilateral sclera anicteric Cardiovascular: regular rate and rhythm, S1/S2 present, no murmurs appreciated Pulmonary: clear to auscultation bilaterally, no rales/rhonchi/wheezes Abdominal: soft, non-tender, non-distended, no rebound/guarding, normal bowel sounds present Musculoskeletal: normal ROM, no peripheral edema Skin: warm and dry, intact, no rashes Neuro: Residual right-sided deficits Objective Labs 02/29/24 05:26 02/29/24 05:26 Labs: Laboratory Results - last 24 hr 02/28/24 02/28/24 02/29/24 11:59 17:56 05:26 WBC 6.6 5.4 RBC 3.95 L 3.63 L Hgb 11.8 L 10.9 L Hct 35.1 L 32.5 L MCV 89 90 MCH 29.9 30.0 MCHC 33.6 33.5 RDW Std Deviation 40.4 39.8 Plt Count 198 240 D Neut % (Auto) 77 54 Lymph % (Auto) 15 30 [place] % (Auto) 6 12 Eos % (Auto) 1 3 Baso % (Auto) 0 0 Neut # (Auto) 5.1 2.9 Lymph # (Auto) 1.0 1.6 [place] # (Auto) 0.4 0.6 Eos # (Auto) 0.0 0.2 Baso # (Auto) 0.0 0.0 Immature Gran # (Auto) 0.01 H 0.01 H Absolute Nucleated RBC 0.00 0.00 Immature Gran % 0 0 Nucleated RBC % 0 0 PT 11.5 INR 1.1 APTT 25.1 Sodium 137 143 Potassium 4.0 4.2 Chloride 104 108 H Carbon Dioxide 25.7 28.5 Anion Gap 7 7 BUN 14 12 Creatinine 1.1 1.0 Estim Creat Clear Calc Not Performed. 46.9 L eGFR > 60 > 60 BUN/Creatinine Ratio 13 12 Glucose [address] Glu mg/dL 295 H Hemoglobin A1c 11.9 H Calculated Osmolality 287 287 Calcium 9.4 9.3 Corrected Calcium 9.4 9.5 Phosphorus 4.0 Magnesium 1.7 1.8 Total Bilirubin 0.7 0.8 AST 17 12 ALT 29 26 Alkaline Phosphatase 82 69 Troponin I < 0.002 Total Protein 6.6 5.9 Albumin 4.3 3.8 D Globulin 2.3 2.1 L Albumin/Globulin Ratio 1.9 1.8 Triglycerides 49 Cholesterol 90 L LDL Cholesterol, Calc 43 HDL Cholesterol 37 L Cholesterol/HDL Ratio 2.4 L TSH 1.33 Ur Collection Type Clean Catch Urine Color Lt-Yellow Urine Clarity Clear Urine pH 7.5 H Ur Specific [place] 1.010 Urine Protein Trace Urine Glucose (UA) 3+ A Urine Ketones Negative Urine Blood Negative Urine Nitrite Negative Urine Bilirubin Negative Urine Urobilinogen (Auto) Negative Ur Leukocyte Esterase Negative Urine RBC 3 Urine WBC 1 Ur Squamous Epith Cells 0 Urine Bacteria None Urine Opiates Screen Negative Urine Fentanyl Screen Negative Ur Barbiturates Screen Negative U Amphetamin/Meth Scrn Negative U Benzodiazepines Scrn Negative U Cocaine Metab Screen Negative U Marijuana (THC) Screen Negative Quality Measures Quality Measures stroke Suspected type of Stroke: Acute Ischemic Last known well (date): 02/28/24 Last known well (time): 11:20 Tenecteplase given: Reason(s) Tenecteplase not given: Stroke severity too mild (non-disabling) not given Rehab services: PT evaluation ordered VTE Prophylaxis: pharmaceutical Antithrombotic by day 2:: ordered Statin ordered: >75 y/o moderate or high intensity dose Anticoagulation ordered for A-fib or flutter (current or hx): ordered Advance care planning discussed with:: patient Assessment & Plan Assessment Current Active Medications: Generic Name Dose Route Start Last Admin Trade Name Freq PRN Reason Stop Dose Admin Acetaminophen 650 mg 02/28/24 15:20 Acetaminophen 325 Mg Tablet PO 03/29/24 15:19 Q6H PRN Pain Scale 1-3 or Fever >100.3 Aspirin 81 mg 02/29/24 09:00 02/29/24 08:11 Aspirin Ec 81 Mg Tabec PO 03/30/24 08:59 81 mg QDAY [facility] Administration Atorvastatin Calcium 40 mg 02/28/24 21:00 02/28/24 21:48 Atorvastatin Calcium 20 Mg Tablet PO 03/29/24 20:59 40 mg HS [facility] Administration Clopidogrel Bisulfate 75 mg 02/29/24 09:00 02/29/24 08:11 Clopidogrel Bisulfate 75 Mg Tablet PO 03/30/24 08:59 75 mg QDAY [facility] Administration Dextrose 25 ml 02/28/24 15:24 Dextrose 50%-Water Inj 50 Ml Syringe IV 03/29/24 15:23 Q15MIN PRN BG 50-70 responsive npo pt Dextrose 50 ml 02/28/24 15:24 Dextrose 50%-Water Inj 50 Ml Syringe IV 03/29/24 15:23 Q15MIN PRN BG <50 OR BG <70 & pt unresponsive Glucagon 1 mg 02/28/24 15:24 Glucagon Inj 1 Mg Vial IM Q15MIN PRN BG <70, and no IV access Hydralazine HCl 10 mg 02/28/24 15:31 Hydralazine Inj 20 Mg/Ml Vial IV 03/29/24 15:30 Q4HR PRN Hyptertension Insulin Glargine 16 unit 02/28/24 21:00 02/28/24 21:41 Insulin Glargine (Lantus) 5 Unit/0.05 Ml (Per 5 Units) SC 03/29/24 20:59 Not Given HS [facility] Insulin Human Lispro 0 unit 02/28/24 17:00 02/29/24 08:11 Insulin Lispro (Admelog) 1 Unit/0.01 Ml Unit SC 03/29/24 16:59 1 unit ACHS [facility] Administration Protocol Lisinopril 20 mg 02/29/24 12:00 Lisinopril 20 Mg Tablet PO 03/30/24 11:59 QDAY [facility] Ondansetron HCl 4 mg 02/28/24 11:59 Ondansetron Inj 2 Mg/Ml Inj 2 Ml IV 03/29/24 11:58 Q4HR PRN NAUSEA OR VOMITING Pantoprazole Sodium 40 mg 02/28/24 15:30 02/29/24 08:11 Pantoprazole 40 Mg Tablet PO 03/29/24 15:29 40 mg QDAY [facility] Administration Plan Artie Roman is an 83-year-old male with past medical history of hypertension, hyperlipidemia, insulin-dependent type 2 diabetes mellitus, history of CVA who is admitted for CVA versus TIA workup. #CVA versus TIA Right-sided facial drop is patient's baseline from previous stroke of March 2023. Able to follow commands and minimal motor weakness noted on upper and lower extremity. A1c 11.9%. TGL 49 (WNL), cholesterol 90 (L), LDL 43 (WNL), HDL 37 (L). TSH WNL. CTA head/neck: No significant neck arterial stenosis, 50% stenosis of M1 segment of right MCA (not noted on CTA head/neck on 03/19/2023). Orthostatic vitals: BP 148/68 lying, 153/76 sitting, 153/99 standing Speech therapy recommends to continue current diet follow-up as needed MRI showed 2 mm acute infarct left temporal lobe ? Continue aspirin 81 mg and Plavix 75 mg daily ? Atorvastatin 40 mg at bedtime ? Follow-up echo ? Neurochecks every 4 hours ? Physical therapy #Primary hypertension Permissive hypertension until 12 PM on 02/28 ? Home lisinopril 20 mg at bedtime #Type 2 diabetes mellitus, insulin-dependent Home regimen of glargine 14 units HS and jardiance ? Glargine 14 at bedtime ? [facility] Hospital management: Disposition: pending MRI and echo Fluids: not indicated Diet: carb consistent low Lines: peripheral DVT prophylaxis: SCDs GI prophylaxis: pantoprazole CODE STATUS: full code ----- Plan discussed with attending physician Dr. Falcon and senior resident physician Dr. Quoc Sanches MD PGY-1 Internal Medicine Attending Provider Attestation/Addendum I, Corinna Falcon DO, attest that I was physically present for the boo portions of the service and evaluated the patient with the resident and I reviewed and discussed the case with the resident and agree with the resident's findings and plans of care as documented above Patient seen and evaluated this AM. He states he is feeling well. Son and are at bedside and states that his symptoms of RUE weakness have resolved. Patient denies any further episodes of dizziness or blurry vision, but has some slurred speech that remains. Pending echo and MRI.
[2024-02-29] MEDS: Lisinopril 20 MG TABLET PO (12:14)
--- NOTE | 2024-02-29 14:26 | PC.SS ---
Rounding Note: Echo and MRI are pending. Plan is to d/c patient tomorrow.
--- NOTE | 2024-02-29 15:07 | PC.PT ---
PT eval only. Patient is I with transfers and ambulation with walker.
[2024-02-29] MEDS: ATORVASTATIN CALCIUM 20 MG TABLET 40 MG PO (20:40)
[2024-02-29] MEDS: INSULIN GLARGINE (Lantus) 5 UNIT/0.05 ML (PER 5 UNITS) 16 UNIT SC (20:46)
[2024-03-01] VITALS: BP 132/64; PULSE 56; PULSE 60; RESP 17; TEMP 36.2; O2SAT 97
[2024-03-01 04:00] VITALS: BP 130/63; PULSE 63; PULSE 64; RESP 16; TEMP 36.5; O2SAT 93
[2024-03-01 06:00] VITALS: BMI 23.6
[2024-03-01 06:01] LABS: Basophils % (Auto) 0 % (0-2.5); Eosinophils # (Auto) 0.2 Thou/mm3 (0.0-0.5); Eosinophils % (Auto) 3 % (0-10); Hematocrit 33.2 % (41.0-53.0); Hemoglobin 11.1 g/dL (13.5-16.0); Immature Granulocytes % (Auto) 0 % (0-0); Immature Granulocytes Auto 0.01 Thou/mm3 (0.00-0.00); Lymphocytes # (Auto) 1.5 Thou/mm3 (1.0-4.8); Lymphocytes % (Auto) 20 % (10-50); Mean Corpuscular HGB Conc 33.4 g/dl (31.0-37.0); Mean Corpuscular Hemoglobin 29.6 pg (25.0-35.0); Mean Corpuscular Volume 89 fL (80-100); Monocytes # (Auto) 0.8 Thou/mm3 (0.0-0.8); Monocytes % (Auto) 11 % (0-12); Neutrophils % (Auto) 67 % (37-80); Nucleated Red Blood Cell % 0 /100 WBC (0); Platelet Count 210 Thou/mm3 (140-440); Red Blood Count 3.75 Miln/mm3 (4.50-5.90); White Blood Count 7.5 Thou/mm3 (3.8-10.6)
[2024-03-01 06:53] LABS: Alanine Aminotransferase 20 U/L (10-49); Albumin/Globulin Ratio 1.9 (1.2-2.2); Alkaline Phosphatase 77 U/L (46-116); Anion Gap 9 (7-16); Aspartate Amino Transferase 15 U/L (0-34); BUN/Creatinine Ratio 22 Ratio (12-20); Bilirubin,Total 0.5 mg/dL (0.3-1.2); Blood Urea Nitrogen 22 mg/dL (9-23); Calcium 9.5 mg/dL (8.3-10.6); Calcium (Corrected) 9.5 mg/dL (8.5-10.1); Carbon Dioxide 25.9 mMol/L (20.0-31.0); Chloride 107 mMol/L (98-107); Estimated Creatinine Clearance 46.9 mL/min (>60); Globulin 2.1 gm/dL (2.3-3.5); Glucose 104 mg/dL (74-106); Magnesium 1.7 mg/dL (1.6-2.6); Osmolality,Calculated 286 (275-295); Phosphorous 4.7 mg/dL (2.4-5.1); Potassium 3.8 mMol/L (3.4-5.1); Sodium 142 mMol/L (136-145); Total Protein 6.1 gm/dL (5.7-8.2); eGFR > 60 See Note
[2024-03-01] MEDS: INSULIN LISPRO (AdmeLOG) 1 UNIT/0.01 ML UNIT SC ×2 (07:50→12:05)
[2024-03-01 08:00] VITALS: BP 125/61; PULSE 66; PULSE 80; RESP 23; TEMP 36.7; O2SAT 97
[2024-03-01 08:52] VITALS: BP 125/61; PULSE 66
[2024-03-01] MEDS: ASPIRIN EC 81 MG TABEC PO (08:52)
[2024-03-01] MEDS: CLOPIDOGREL BISULFATE 75 MG TABLET PO (08:52)
[2024-03-01] MEDS: PANTOPRAZOLE 40 MG TABLET PO (08:52)
[2024-03-01] MEDS: Lisinopril 20 MG TABLET PO (08:52)
[2024-03-01 11:31] VITALS: BMI 23.6
--- NOTE | 2024-03-01 11:48 | ESDS_ITS ---
<Statement entered by Corinna Falcon DO - 03/01/24 17:43> I, Corinna Falcon DO, attest that I was physically present for the boo portions of the service and evaluated the patient with the resident and I reviewed and discussed the case with the resident and agree with the resident's findings and plans of care as documented above Planned Discharge Date 03/01/24 DS: Providers Provider Date of admission: 02/28/24 15:17 Primary care physician: Physician No Primary/Family Admitting Provider: Corinna Falcon DO Attending Provider on Admission: Corinna Falcon DO Consults: 02/28/24 11:59 Consult to Neurology / Tele-Neurology Routine Comment: Consulting Provider: [facility] 02/28/24 15:35 Referral Physical Therapy Routine Comment: Physician Instructions: Instructions: new stroke, previous TIA and Stroke in March 2023 Referral Speech Therapy Routine Comment: dyarthic at baseline 02/28/24 21:18 Referral Registered Dietitian Routine Comment: [facility] Referral - Knowledge Deficit Routine Comment: Positive screening for knowledge deficit needs. Attending Provider on DC: Bin Sanches MD Discharging Provider: Bin Sanches MD DS: Diagnosis Problem List Completed Was Problem List Reviewed/Reconciled?: Yes Hospital Course Hospital Course Hospital course: Artie Roman is an 83-year-old male with past medical history of hypertension, hyperlipidemia, insulin-dependent type 2 diabetes mellitus, history of CVA who is admitted for CVA versus TIA workup. Patient presented with slurred speech, blurry vision, and acute onset right upper extremity weakness which was worse compared to his previous baseline deficits from previous stroke. CT head showed no acute hemorrhage, CTA head and neck showed 50% stenosis of M1 segment of right MCA, and MRI showed 2 mm acute infarct in the left temporal lobe. Patient was started on aspirin 81 mg Plavix 75 mg, and atorvastatin 40 mg daily. Echo was negative for bubble study and EF was 60 to 65% with trace MR, AI, TR. Throughout hospital course, there were no acute overnight events and patient did not develop any new or worsening focal neurological deficits. He is to be discharged with atorvastatin 40 mg, aspirin 81 mg, clopidogrel 75 mg, Jardiance 10 mg, and 16 units glargine. Will increase lisinopril from 20 mg to 40 mg. Instructed to return to the ED if symptoms worsen or occur. Diagnoses during admission: #Acute CVA of left temporal lobe #History of stroke with residual right-sided deficits #Primary hypertension #Type 2 diabetes mellitus, insulin-dependent Discharge instructions: ? Continue taking aspirin and Plavix ? Continue taking atorvastatin 40 mg daily ? Continue with lisinopril 40 mg for blood pressure ? Continue rest of home medications ? Follow-up with PCP within 2 weeks of discharge ----- Plan discussed with attending physician Dr. Falcon and senior resident physician Dr. Quoc Sanches MD PGY-1 Internal Medicine Time Spent with Patient Time attestation: Total time spent providing and/or coordinating discharge services: >30min Exam Vital Signs Temp Pulse Resp BP Pulse Ox O2 Del Method 98.1 F 66 23 H 125/61 97 Room Air 03/01/24 08:00 03/01/24 08:52 03/01/24 08:00 03/01/24 08:52 03/01/24 08:00 03/01/24 08:00 Narrative Exam General: AOx3, no acute distress, able to speak full sentences HEENT: NC/AT, mucous membranes moist, bilateral sclera anicteric Cardiovascular: regular rate and rhythm, S1/S2 present, no murmurs appreciated Pulmonary: clear to auscultation bilaterally, no rales/rhonchi/wheezes Abdominal: soft, non-tender, non-distended, no rebound/guarding, normal bowel sounds present Musculoskeletal: normal ROM, no peripheral edema Skin: warm and dry, intact, no rashes Neuro: Residual right-sided deficits Discharge Plan Plan Patient Disposition: HOME (Self Care) Health Concerns: Follow up with primary care provider to receive consult for Dr. Fuchs. Office number for Dr. Fuchs: [phone] Prescriptions/Referrals Prescriptions/Med Rec: New lisinopril 40 mg tablet 40 mg PO QDAY Qty: 30 0RF (DME) Blood Pressure Cuff Misc See Rx Instructions .Route Qty: 1 0RF Rx Instructions: As directed Continued Jardiance 10 mg tablet 10 mg PO DAILY Patient Comments: TAKE 1 TABLET BY MOUTH ONCE DAILY insulin glargine [Lantus Solostar U-100 Insulin] 100 unit/mL (3 mL) insulin pen 16 unit SUBCUT HS aspirin 81 mg tablet,delayed release (DR/EC) 81 mg PO QDAY Qty: 30 0RF clopidogrel [Plavix] 75 mg tablet 75 mg PO QDAY Qty: 30 0RF atorvastatin 40 mg tablet 40 mg PO QPM Qty: 30 0RF Discontinued lisinopril 20 mg tablet 20 mg PO HS Patient Comments: TAKE 1 TABLET BY MOUTH ONCE DAILY FOR BLOOD PRESSURE FOR 30 DAYS Referrals: No Primary/Family,Physician [Primary Care Provider] - Patient/Caregiver Discharge Instructions Other Discharge Activity Instructions:: Continue taking aspirin and Plavix. Continue taking atorvastatin 40 mg daily. Continue with lisinopril 40 mg for blood pressure. Continue rest of home medications. Follow-up with PCP within 2 weeks of discharge. Education Materials: What Is Aphasia?, Symptoms of Stroke, What Is Dysarthria, What Is a TIA? Print Language: Gambian Stand Alone Forms: [employer] Award Info., Patient Portal Info Letter Discharge Order Discharge Orders: Discharge (Routine); Ordered 03/01/24 Ordered By: Shannon Kumari Quality Discharge Quality Measures VTE prophylaxis
[2024-03-01 12:00] VITALS: BP 151/82; PULSE 65; PULSE 73; RESP 18; TEMP 36.2; O2SAT 100
--- NOTE | 2024-03-01 14:12 | PC.SS ---
Rounding Note: Plan is for the patient to d/c home today.
[2024-03-01 14:30] VITALS: BP 122/64; PULSE 64; RESP 17; TEMP 35.8; O2SAT 99
--- NOTE | 2024-03-01 14:51 | PC.NURSE ---
Called Dr. Serra about discharge, ok to discharge and patient will follow up with primary to refer to Dr. Fuchs due to Dr. Fuchs being unavailable. Son at bedside to sign papers and interpretor used for discharge instructions. Notified Dr. Serra about last BM documented on 02/26, ok to still discharge. Family stated that they helped with BM on 02/28 but forgot to tell the nurse so was not documented.
--- NOTE | 2024-03-01 15:14 | PC.NURSE ---
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 Verbalized able to picker machine operator medication and bp cuff after discharge. Patient already has primary appointment set up but educated son to call due to need to refer to neurology through primary.
== END 2024-03-01 14:50 | disposition home or self-care (01) | DRG 66 ==
LOC: SERX 14:19 → SERHOLD 15:31 → S2NX 19:03
PROVIDERS: Student in an Organized Health Care Education/Training Program; Admitting Provider Internal Medicine; Emergency Provider Emergency Medicine; Visit Provider Internal Medicine
DX: I63.9 Cerebral infarction, unspecified (principal); R47.1 Dysarthria and anarthria; R29.810 Facial weakness; E78.5 Hyperlipidemia, unspecified; E11.9 Type 2 diabetes mellitus without complications; Z79.4 Long term (current) use of insulin; I10 Essential (primary) hypertension; Z79.82 Long term (current) use of aspirin; I69.30 Unspecified sequelae of cerebral infarction
CPT/HCPCS: 36415; 70450; 70496; 70498; 70544; 80053; 80061; 80307; 81001; 83036; 83735; 84100; 84443; 84484; 85025; 85610; 85730; 87086; 92610; 93005; 93306; 94762; 97162; 99291; A4649; J1815; J7030; Q9967; A9270